=== PATIENT | female | born 1955 | race Caucasian/White ===

== ENCOUNTER 2021-12-05 05:55 | Inpatient (IN) ==
[2021-12-05] MEDS ORDERED: NiCARdipine 2.5 MG/10 ML Syringe IVPB ONE (06:26)
[2021-12-05] MEDS ORDERED: Ketamine HCL *QUVA* 50mg (1mL) SYRINGE ONE (06:26)
[2021-12-05] MEDS ORDERED: *HR* Norepinephrine 4 MG/4 ML VIAL IVC ONE (06:27)
[2021-12-05] MEDS ORDERED: EPINEPHrine 1 MG/ML VIAL ONE (06:29)
[2021-12-05] MEDS ORDERED: *HR* Phenylephrine 10 MG/ML VIAL ONE (06:29)
[2021-12-05] MEDS ORDERED: 0.9 % Sodium Chloride 2,000 ML ONE ×2 (06:36→07:12)
[2021-12-05] MEDS ORDERED: Vancomycin 1,000 MG VIAL ONE (06:36)
[2021-12-05] MEDS ORDERED: D5% in Water 100 ML ONE ×2 (06:37→06:46)
[2021-12-05] MEDS ORDERED: 0.9 % Sodium Chloride 250 ML ONE (06:37)
[2021-12-05] MEDS ORDERED: *HR* FentaNYL (PF) 100 MCG/2 ML VIAL ONE (06:49)
[2021-12-05] MEDS ORDERED: *HR* Midazolam HCl 2 MG/2 ML VIAL ONE (06:49)
[2021-12-05] MEDS ORDERED: Iopamidol - 370 200 ML INFUS..BTL ONE (07:12)
[2021-12-05] MEDS ORDERED: Heparin 1,000 UNITS/500 mL 1,500 ML ONE (07:12)
[2021-12-05] MEDS ORDERED: Protamine Sulfate 50 MG/5 ML VIAL IVP ONE (07:12)
[2021-12-05] MEDS ORDERED: *HR* Heparin 10,000 UNIT/10 ML VIAL ONE (07:12)
[2021-12-05] MEDS ORDERED: Norepinephrine 4 MG in 0.9 % Sodium Chloride 250 ML IVC PRN (07:30)
[2021-12-05] MEDS ORDERED: Heparin 15,000 UNIT in 0.9 % Sodium Chloride 500 ML IR ONE (07:30)
[2021-12-05] MEDS ORDERED: del Nido Cardioplegia Solution PF ONE (07:30)
[2021-12-05] MEDS ORDERED: Buckersberg's Blood Cardioplegia PF ONE (07:30)
[2021-12-05] MEDS ORDERED: Ondansetron 4 MG/2 ML VIAL IVP PRN (13:53)
[2021-12-05] MEDS ORDERED: *HR* Propofol 200 MG/20 ML VIAL IVP ONE (15:32)
[2021-12-05] MEDS ORDERED: *HR* Propofol 500 MG/50 ML BOTTLE IVP ONE (15:32)
[2021-12-05] MEDS: Chlorhexidine Rinse 15 ML MOUTHWASH MM SCH (19:05)
[2021-12-06 03:46] LABS: Basophils % 0.2 %; Eosinophils % 0.1 %; Hematocrit 32.8 % (35.3-44.9); Hemoglobin 10.8 g/dL (11.5-15.4); Immature Granulocytes % 0.4 % (0-4); Lymphocytes # 1.3 K/mcL (0.6-4.6); Mean Corpuscular HGB Conc 32.9 g/dL (31.6-35.5); Mean Corpuscular Hemoglobin 29.4 pg (28.0-33.3); Mean Corpuscular Volume 89.4 fL (83.0-100.0); Mean Platelet Volume 10.1 fL (9.4-12.4); Monocytes # 1.3 K/mcL (0.0-1.3); Neutrophils # 10.4 K/mcL (1.6-8.9); Platelet Count 197 K/mcL (140-400); Red Blood Count 3.67 M/mcL (3.82-4.97); Red Cell Distribution Width 12.8 % (11.5-14.5); Segmented Neutrophils % 79.3 %; White Blood Count 13.2 K/mcL (4.3-11.1)
[2021-12-06 03:56] LABS: INR 1.2; Prothrombin Time 13.4 Seconds (9.4-12.1)
[2021-12-06 04:05] LABS: BUN/Creatinine Ratio 14 (6-26); Blood Urea Nitrogen 9 mg/dL (8-23); Calcium 9.2 mg/dL (8.6-10.3); Carbon Dioxide 23 mEq/L (23-29); Chloride 102 mEq/L (98-107); Glucose 112 mg/dL (70-105); Osmolality,Calculated 279 (280-300); Potassium 3.6 mEq/L (3.5-5.1); Sodium 135 mEq/L (136-145)
[2021-12-06] MEDS ORDERED: del Nido Cardioplegia Solution PF ONE (08:00)
[2021-12-06] MEDS: Aspirin Enteric Coated 81 MG Tablet PO SCH (08:24)
[2021-12-07] MEDS: Aspirin Enteric Coated 81 MG Tablet PO SCH (08:42)
[2021-12-07] MEDS ORDERED: *HR* Midazolam HCl 2 MG/2 ML VIAL ONE (09:12)
[2021-12-07] MEDS ORDERED: *HR* FentaNYL (PF) 100 MCG/2 ML VIAL ONE (09:12)
[2021-12-07] MEDS ORDERED: 0.9 % Sodium Chloride 500 ML ONE (09:13)
[2021-12-07] MEDS ORDERED: 0.9 % Sodium Chloride 1,000 ML ONE (09:15)
[2021-12-07] MEDS ORDERED: *HR* HYDROcodone/Acet 5/325 mg TABLET PO PRN (16:55)
[2021-12-07] MEDS: CeFAZolin 2 GM/120 ML BAG IVPB SCH ×2 (17:02→23:53)
[2021-12-08] MEDS: Aspirin Enteric Coated 81 MG Tablet PO SCH (07:57)
[2021-12-08 11:17] VITALS: BP 132/56; PULSE 95; TEMP 98.1; O2SAT 94
[2021-12-09] MEDS ORDERED: Metoprolol XL (24 HR) Succ 25 MG TAB.ER.24H PO SCH (09:00)
== END 2021-12-08 14:04 | disposition home or self-care (01) | DRG 267 ==
LOC: INVDIALAB 05:55 → ICNU 09:47 → 2NNU 12-06 21:40
PROVIDERS: ADMIT Thoracic Surgery (Cardiothoracic Vascular Surgery); ATTEND Thoracic Surgery (Cardiothoracic Vascular Surgery)